=== PATIENT | male | born 1945 | race Caucasian/White ===

== ENCOUNTER → 2016-05-04 | Day surgery (SDC) | payer MEDICARE ==
[~2016-05-04] MED LIST: ACETAMINOPHEN 325 MG TAB ONE; DEXAMETHASONE SOD PHOS 4 MG/ML VIAL ONE; EPINEPHrine HCL (1:1000) 1 MG/ML VIAL ONE; LACTATED RINGER'S 1000 ML INJ 1,000 ML ONE; MIDAZOLAM HCL 2 MG/2 ML VIAL ONE; MOXIFLOXACIN 0.5% OPHT SOLN 3 ML BTL ONE; ONDANSETRON HCL 4 MG/2 ML VIAL IV PUSH ONE; PHENYLEPHRINE HCL 10% OPTH SOLN 5 ML BTL ONE; PROPOFOL 200 MG/20 ML AMP IV ONE; SODIUM CHLORIDE 0.9% INJ 10 ML ONE; TETRACAINE 0.5% OPTH SOLN 15 ML BTL ONE; TOBRAMYCIN/DEXAMETHASONE OPTH OINT 3.5 GM TUBE ONE; ceFAZolin INJ 1,000 MG VIAL ONE; prednisoLONE ACETATE 1% OPHT SUSP 5 ML BTL ONE
--- NOTE | 2016-05-10 09:10 | TN ---
cc: AFUA MCNALLY MD DATE OF SURGERY 05/04/2016 DATE OF 1945. PREOPERATIVE DIAGNOSIS Full-thickness macular hole right eye. POSTOPERATIVE DIAGNOSIS Full-thickness macular hole right eye. PROCEDURE Pars plana vitrectomy, macular hole repair, removal of internal limiting membrane/epiretinal membrane, insertion of 18% SF6 gas, right eye. COMPLICATIONS None. BLOOD LOSS Less than 1 cc. ANESTHESIA general Hina. INDICATIONS FOR PROCEDURE This delightful patient presented with full-thickness macular hole in his right eye and decreased visual acuity in his right eye. The patient elected for surgical correction. PROCEDURE NOTE After informed consent was obtained, the patient was brought to the operating room and general anesthesia was established. The right eye was prepped and draped in sterile fashion with Betadine in the conjunctival fornix. A three-port pars plana vitrectomy was established with self-retaining infusion cannula. Core vitreous was evacuated. Posterior vitreous attachment was created. The ILM/ERM was highlighted with ICV and removed [place] ILM forceps. Scleral depression examination revealed no peripheral retinal holes, tears or detachments. Air-fluid exchange was carried out and macular hole noted to close. 18% SF6 gas was instilled. Trocars were removed and sclerotomies sealed. Subconjunctival injection of Ancef and dexamethasone were given. The eye was patched with tobramycin ointment. The patient was brought to the recovery room in stable condition. He is to continue follow up at [facility] for his postoperative care. MD MILADYS Xiao/SSB /4:00 PM /9:00 AM
== END | disposition home or self-care (01) ==
LOC: ESDC 06:22
PROVIDERS: ATTEND Ophthalmology
DX: H35.341 Macular cyst, hole, or pseudohole, right eye (principal)
CPT/HCPCS: 00145; 67042; J0171; J0690; J1100; J2250; J2405; J3010; J7120